=== PATIENT | male | born 1975 | race Caucasian/White ===

== ENCOUNTER 2019-06-18 15:41 | Emergency (ER) | payer MEDICAID, OTHER ==
[~2019-06-18] VITALS: Ht 182.9 cm; Wt 77.1 kg
[2019-06-18 15:49] VITALS: BP 141/77
[2019-06-18] MEDS ORDERED: CYCLOBENZAPRINE 10 MG TABLET ONE (16:16)
[2019-06-18] MEDS ORDERED: DEXAMETHASONE SOD PHOSPHATE 10 MG/ML VIAL ONE (16:16)
[2019-06-18] MEDS ORDERED: KETOROLAC TROMETHAMINE INJ 30 MG/ML VIAL ONE (16:16)
[2019-06-18] MEDS ORDERED: KETOROLAC TROMETHAMINE INJ 60 MG/2 ML VIAL IM ONE (16:30)
[2019-06-18] MEDS ORDERED: CYCLOBENZAPRINE 10 MG TABLET PO ONE (16:30)
[2019-06-18] MEDS ORDERED: DEXAMETHASONE SOD PHOSPHATE 4 MG/ML VIAL IM ONE (16:30)
== END 2019-06-18 17:36 | disposition home or self-care (01) ==
LOC: ER 15:47
DX: M54.5 Low back pain (principal); F17.200 Nicotine dependence, unspecified, uncomplicated; X50.9XXA Other and unspecified overexertion or strenuous movements or postures, initial encounter; Y93.89 Activity, other specified; Y92.89 Other specified places as the place of occurrence of the external cause; Y99.8 Other external cause status
CPT/HCPCS: 96372 ×2; 99283; J1100; J1885

== ENCOUNTER 2022-07-10 16:07 | Emergency (ER) | payer MEDICAID ==
[~2022-07-10] VITALS: Ht 180.3 cm; Wt 74.8 kg
--- NOTE | 2022-07-10 16:10 | NUR ---
RECEIVED PT 46 YRS MALE CAME FROM HOME LACERATION ON LT THUMB CUT BY NIFE AT NOON TIME NO ACTIVE BLEEDING
--- NOTE | 2022-07-10 16:25 | NUR ---
Samina sharma in ED - 07/10/22 at 1708 by PHLAURIES TD 0.5ML AND KEFLEX 500MG PO GIVEN NO ADVANCE REACTION
--- NOTE | 2022-07-10 16:25 | NUR ---
WOUND CARE DONE AT BED SIDE BY ED TACH
--- NOTE | 2022-07-10 16:39 | NUR ---
DR. CHARLES AT BED SIDE SEE PT
[2022-07-10] MEDS ORDERED: CEPHALEXIN MONOHYDRATE 500 MG CAPSULE PO ONE ×2 (16:45→17:00)
--- NOTE | 2022-07-10 16:45 | NUR ---
TD 0.5ML AND KEFLEX 500MG PO GIVEN NO ADVANCE REACTION
[2022-07-10] MEDS ORDERED: TDAP [DIPH/PERTUSSIS/TET] 0.5 ML VIAL IM ONE ×2 (16:46→17:00)
[2022-07-10] MEDS ORDERED: CEPH500C2 PO (16:48)
--- NOTE | 2022-07-10 16:57 | NUR ---
Patient discharged to home in stable condition. Written and verbal after care instructions given. Patient verbalizes understanding of instruction.
[2022-07-10 17:03] VITALS: BP 126/76
== END 2022-07-10 17:09 | disposition home or self-care (01) ==
LOC: ER 16:14
DX: S61.012A Laceration without foreign body of left thumb without damage to nail, initial encounter (principal); X78.1XXA Intentional self-harm by knife, initial encounter; Y93.89 Activity, other specified; Y92.89 Other specified places as the place of occurrence of the external cause; Y99.8 Other external cause status
CPT/HCPCS: 90715